=== PATIENT | female | born 2000 | race Caucasian/White ===

== ENCOUNTER 2021-08-13 22:36 | Inpatient (IN) ==
[2021-08-13 23:41] LABS: ABS Eosinophils 0.2 10^3/ul (0-0.6); ABS Lymphocytes 2.4 10^3/ul (1.0-4.8); ABS Monocytes 0.5 10^3/ul (0-0.8); ABS Neutrophils 4.2 10^3/ul (1.5-7.7); Eosinophil % 2.2 %; Hematocrit 41 % (35-47); Hemoglobin 13.6 g/dL (12.0-16.0); Lymphocyte % 32.6 %; Mean Corpuscular HGB Conc 34 g/dL (31-36); Mean Corpuscular Hemoglobin 29 pg (27-31); Mean Corpuscular Volume 86 fL (80-97); Mean Platelet Volume 8.6 fL (7.4-10.4); Nucleated Red Blood Cells % 0.1; Platelet Count 230 10^3/uL (150-450); Red Blood Count 4.74 10^6 /uL (3.70-4.87); Red Cell Distribution Width 14 % (10-15); White Blood Count 7.3 10^3/uL (3.5-10.8)
[2021-08-13 23:42] LABS: Urine Appearance Cloudy; Urine Bilirubin Negative (Negative); Urine Blood Negative (Negative); Urine Color Yellow; Urine Glucose Negative (Negative); Urine Ketones Negative (Negative); Urine Nitrite Negative (Negative); Urine Protein Negative (Negative); Urine Specific Gravity 1.024 (1.002-1.030); Urine Urobilinogen Negative (Negative)
[2021-08-13 23:55] LABS: ALT 9 U/L (7-52); AST 13 U/L (13-39); Albumin 4.9 g/dL (3.2-5.2); Albumin/Globulin Ratio 1.7 (1-3); Alkaline Phosphatase 58 U/L (35-149); Anion Gap 7 mmol/L (2-11); Blood Urea Nitrogen 21 mg/dL (6-24); CO2 Carbon Dioxide 28 mmol/L (22-32); Calcium 9.9 mg/dL (8.6-10.3); Chloride 103 mmol/L (101-111); Globulin 2.9 g/dL (2-4); Glucose 91 mg/dL (70-100); Potassium 3.5 mmol/L (3.5-5.0); Sodium 138 mmol/L (135-145); Total Protein 7.8 g/dL (6.4-8.9); eGFR CKD-EPI 103.7 (>60)
[2021-08-14 00:01] LABS: Urine Benzodiazepine Screen None Detected (None Detect); Urine Cannabinoids Screen None Detected (None Detect); Urine Opiates Screen None Detected (None Detect)
[2021-08-14 00:12] LABS: Acetaminophen < 15 mcg/mL; Alcohol, S < 13 mg/dL (<13); Salicylate < 2.50 mg/dL (<30)
[2021-08-14 00:27] LABS: TSH Ultra Thyroid Stim Horm 2.11 mcIU/mL (0.34-5.60)
[2021-08-14] MEDS ORDERED: Al Hydrox/Mg Hydrox/Simet LIQ 30 ML UDC PO PRN (07:25)
[2021-08-14] MEDS: Vitamin THERAPEUTIC TAB PO SCH (12:15)
[2021-08-15] MEDS: Vitamin THERAPEUTIC TAB PO SCH (07:47)
[2021-08-15] MEDS ORDERED: ESTRADIOL VALERATE IM SCH (18:00)
[2021-08-16 07:38] LABS: HDL Cholesterol 47.5 mg/dL
[2021-08-16] MEDS: Vitamin THERAPEUTIC TAB PO SCH (08:26)
[2021-08-16] MEDS: Venlafaxine XR 75 mg PO SCH (08:26)
[2021-08-17] MEDS: Venlafaxine XR 75 mg PO SCH (08:44)
[2021-08-17] MEDS: Vitamin THERAPEUTIC TAB PO SCH (08:44)
[2021-08-18] MEDS: Venlafaxine XR 75 mg PO SCH (08:16)
[2021-08-18] MEDS: Vitamin THERAPEUTIC TAB PO SCH (08:16)
[2021-08-19 08:43] VITALS: BP 111/62
[2021-08-19] MEDS: Vitamin THERAPEUTIC TAB PO SCH (08:54)
[2021-08-19] MEDS: Venlafaxine XR 75 mg PO SCH (08:54)
== END 2021-08-19 16:25 | disposition home or self-care (01) | DRG 751 ==
LOC: ED 22:36 → BSU 08-14 08:46
PROVIDERS: ADMIT Psychiatry & Neurology Psychiatry; ATTEND Student in an Organized Health Care Education/Training Program